=== PATIENT | female | born 2000 | race African-American/Black ===

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

== ENCOUNTER 2020-05-31 12:26 | Outpatient (CLI) | payer BC ==
[2020-05-31] MEDS ORDERED: Iopamidol 370 76% 100 ML VIAL ONE (13:02)
--- NOTE | 2020-05-31 14:11 | CT ---
EXAM: CT Abdomen Pelvis W WO con PROVIDED CLINICAL HISTORY: Gross hematuria COMPARISON: None FINDINGS: Subsequent to administration of IV contrast, the patient was nauseated and unable to complete the christoph ous images. Precontrast and urographic images were obtained. The visualized lung bases are free of significant opacity. There is no evidence for urinary tract calculi or hydronephrosis. There is no gross evidence for brian l mass with limitations due to lack of venous phase imaging. The delayed images demonstrate no evidence for a filling defect involving the renal collecting systems, ureters or urinary bladder. The liver, spleen, pancreas and adrenal glands appear grossly unremarkable. There is no bowel dilatat ion, inflammatory fat stranding, free fluid or lymph node enlargement apparent. The osseous structures demonstrate no concerning lytic or blastic lesions. IMPRESSION: An etiology for the patient's hematuria is not evident on this examination, with limitations as descr ibed.
== END 2020-05-31 12:27 | disposition home or self-care (01) ==
LOC: BICCT 12:26
PROVIDERS: ATTEND Urology
DX: R31.0 Gross hematuria (principal)
CPT/HCPCS: 74178; Q9967